=== PATIENT | male | born 1985 | race African-American/Black ===

== ENCOUNTER 2017-04-12 00:47 | Emergency (ER) | payer SELFPAY ==
[2017-04-12 00:57] VITALS: BP 135/79; PULSE 54; TEMP 97.7; BMI 27.3
[2017-04-12] MEDS ORDERED: KETOROLAC TROMETHAMINE 60 MG/2 ML VIAL ONE (01:03)
[2017-04-12] MEDS ORDERED: KETOROLAC TROMETHAMINE 60 MG/2 ML VIAL IM ONE (01:03)
--- NOTE | 2017-04-12 01:07 | PDOC ---
History of Present Illness - General Chief Complaint: Pain, Acute Stated Complaint: TOOTHACHE Time Seen by Provider: 04/12/17 00:52 - History of Present Illness Initial Comments: This otherwise healthy 32-year-old man presents with a few hour history of right lower molar tooth pain. Patient states that he broke the tooth a few weeks ago while eating (soft food). He had no pain at that time and since then has been unable to follow-up with his dentist. Tonight, after eating, he developed acute pain in the tooth. He had no further sensation of fracturing of the tooth or other new trauma. He denies fever/chills/swelling. 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 He scheduled to return home ([place]) at the end of this week. On no medications No known ALLERGIES Past History - Past Medical History Allergies/Adverse Reactions: Allergies Allergy/AdvReac Type Severity Reaction Status Date / Time No Known Allergies Allergy Verified 04/12/17 00:49 Home Medications: Ambulatory Orders NK [No Known Home Medication] 04/12/17 Other medical history: DENIES - Psycho/Social/Smoking Cessation Hx Anxiety: No Suicidal Ideation: No Smoking History: Current every day smoker Have you smoked in the past 12 months: Yes Number of Cigarettes Smoked Daily: 5 Information on smoking cessation initiated: Yes 'Breaking Loose' booklet given: 04/12/17 Hx Alcohol Use: Yes (2 BEERS DAILY) Drug/Substance Use Hx: No Substance Use Type: None Review of Systems - Review of Systems Able to Perform ROS?: Yes Comments:: 12 point review of systems is negative except for what is noted in the history of present illness *Physical Exam - Vital Signs Last Vital Signs Temp Pulse Resp BP Pulse Ox 97.7 F 54 L 16 135/79 99 04/12/17 00:51 04/12/17 00:51 04/12/17 00:51 04/12/17 00:51 04/12/17 00:51 - Physical Exam Comments: GENERAL: Adult male, alert and oriented 3 in mild distress secondary to right lower tooth pain HEAD: Normal with no signs of trauma. EYES: PERRLA, EOMI, sclera anicteric, conjunctiva clear. ENT: Partial fracture of right lower first molar with exposure of dental pulp, oropharynx clear without exudates. Moist mucous membranes. No edema/tenderness of gingival surfaces; no evidence of periapical abscess NECK: Normal range of motion, supple without lymphadenopathy, JVD, or masses. Medical Decision Making - Medical Decision Making 04/12/17 01:16 Clinical presentation consistent with partial fracture of right lower first molar tooth with exposure of dental pulp; there is no evidence of abscess. Patient given Toradol 60 mg IM Patient given referral for dental urgent care which he will follow-up with tomorrow. Meanwhile, he will take [id number] ibuprofen/naproxen as needed for pain, maintain soft diet and avoid hot/cold foods. Patient will return home after this week and will follow-up with his general dentist for definitive care of the tooth. Meanwhile, prior to returning home, he should return to the ER if he has worsening of his pain or develops swelling of the gum/face. He should also return if the has fever/chills *DC/Admit/Observation/Transfer Diagnosis at time of Disposition: Tooth fracture Qualifiers: Encounter type: initial encounter Fracture type: closed Qualified Code(s): S02.5XXA - Fracture of tooth (traumatic), initial encounter for closed fracture - Discharge Dispostion Condition at time of disposition: Stable - Patient Instructions Printed Discharge Instructions: DI for Fractured Tooth, Smoking Cessation Additional Instructions: soft diet avoid extremes in temperature in the foods you eat motrin/aleve as needed for pain followup tomorrow with dental urgent care as discussed followup with general dentsit when you return home return to ER if pain worsens or you develop swelling/fever
== END 2017-04-12 01:11 | disposition home or self-care (01) ==
LOC: FER 00:47
PROC: 3E0233Z Introduction of Anti-inflammatory into Muscle, Percutaneous Approach (ICD-10-PCS; principal; 2017-04-12)
DX: S02.5XXA Fracture of tooth (traumatic), initial encounter for closed fracture (principal); X58.XXXA Exposure to other specified factors, initial encounter; Y93.89 Activity, other specified; Y92.9 Unspecified place or not applicable; F17.210 Nicotine dependence, cigarettes, uncomplicated
CPT/HCPCS: 99281-25